=== PATIENT | male | born 1965 | race Caucasian/White ===

== ENCOUNTER → 2018-12-16 | Outpatient (CLI) | payer OTHER ==
[~2018-12-16] MED LIST: CRESTOR PO; FISH OIL 1,2001 EAC4 PO; GEMFIBROZIL PO; LORTAB 5 MG/5001 TA1 OR; NABUMETONE PO; RANITIDINE PO; SERTRALINE PO
--- NOTE | 2018-12-25 19:54 | SLE ---
[facility] [place] [address] POLYSOMNOGRAPHY STUDY Name: [facility]#: [id number] Admission: 12/16/18 Attend Phys: Chapincito Stafford MD Discharge: Date of : 67 Report #: [id number] THIS REPORT FOR: //name// CC: Chapincito Vargas MD DATE OF SERVICE: 12/16/2018 SLEEP STUDY ATTENDING PHYSICIAN: Dr. Mayito Vargas. The patient is 53 years old who weighs 236 pounds with a BMI of 34.8. The patient's [place] score was 9. The patient had a home sleep study and was found to have severe MELONIE at an AHI of 55 per hour. The patient also had severe nocturnal hypoxia. The patient returned to [facility] for titration. During the night study, the patient spent 441 minutes in bed and slept for 273 minutes with a low sleep efficiency of 62%. Sleep latency was 32 minutes with a REM latency of 91.5 minutes. Overall, sleep architecture showed normal stage 1 sleep, increased stage 2 sleep, normal slow wave and reduced REM sleep. EKG monitoring revealed an average heart rate of 59 beats per minute. No sustained arrhythmias observed. PLMs were seen at an index of 16 per hour with only 1.5 per hour caused EEG arousals. The patient was started on CPAP at a pressure of 5 cm water and titrated up to 9 cm of water. However, only 3.8 minutes of sleep was observed at 9 cm of water. Best results were seen at a CPAP pressure of 7 cm of water. At that pressure, the patient slept for 64.9 minutes including 9.9 minutes of REM sleep. The patient had supine sleep throughout. The patient's AHI was reduced to 3.7 per hour and oxygen saturation remained above 90%. IMPRESSION: 1. Severe sleep apnea diagnosed by home sleep study. 2. Mild PLMs without any significant EEG arousals. This does not need to be treated. 3. Reduced sleep efficiency resulting from sleep maintenance insomnia. RECOMMENDATIONS: 1. CPAP at 7 cm of water completely eliminated the patient's sleep apnea and should be used on a nightly basis. 2. Follow up in 4-6 weeks to assess compliance with CPAP and to document [address] [address] POLYSOMNOGRAPHY STUDY Name: [facility] Room #: REG [facility] Eileen#: [id number] Admission: 12/16/18 Attend Phys: Chapincito Stafford MD Discharge: Date of : 67 Report #: [id number] clinical improvement. 3. Weight loss is strongly advised. 4. Avoid [employer] depressants. 5. Cautioned regarding driving until symptoms of sleep apnea have resolved with the use of CPAP. 6. PLMs do not need to be treated unless the patient has symptoms of restless legs during the day. <ELECTRONICALLY SIGNED> By: Chapincito Stafford MD 12/25/18 [id number] Chapincito Stafford MD /kenny
== END ==
LOC: SLEEPLAB 14:27
DX: G47.33 Obstructive sleep apnea (adult) (pediatric) (principal)

== ENCOUNTER 2019-04-20 08:30 | Day surgery (SDC) | payer OTHER ==
[~2019-04-20] VITALS: Ht 175.3 cm; Wt 96.2 kg
[~2019-04-20 08:30] MED LIST changes: +BUPROPION HCL150 M1 PO; +CO Q-10200 MG PO; +CRESTOR40 MG PO; +FLONASE 0.05%50 MCG NARES; +MELOXICAM15 MG PO; +RANITIDINE 150150 M1 PO
[2019-04-20 10:23] VITALS: BP 159/90
[2019-04-20 12:00] VITALS: BP 159/90
--- NOTE | 2019-04-26 10:11 | H ---
[facility] [place] [address] HISTORY AND PHYSICAL Name: SAMANTHA PERKINSNT Room #: DEP [facility] M.R.#: [id number] Admission: 04/20/19 Attend Phys: Darrian Norris MD Discharge: 04/20/19 Date of : 67 Report #: [id number] THIS REPORT FOR: //name// CC: Darrian Lamb DATE OF SERVICE: 04/20/2019 PREOPERATIVE DIAGNOSIS: Rhinosinusitis, allergic rhinitis. HISTORY OF PRESENT ILLNESS: The patient is a 53-year-old male who presented back in 12/2017 with a longstanding history of chronic postnasal drainage, thick mucus in the throat, throat clearing, coughing, which is not seasonal. He has a history of sleep apnea as well. On initial evaluation, it was thought that he had mainly chronic allergic rhinitis and sinusitis. He was placed on 3 weeks of oral antibiotics and therapy for his rhinitis. Followup visit was obtained in January, at which time he continued to have physical and symptomatic findings to suggest continued sinusitis. A CT scan was therefore obtained, which demonstrated bilateral maxillary sinus disease. At that point, I gave him the option to continue with more antibiotic therapy and nasal steroid sprays along with full allergy evaluation for bilateral maxillary antrostomies with turbinate reduction, removal of the marielle bullosa. He preceded with allergy testing and reviewed the results. At this point, he does wish to proceed forward with surgical intervention. PLAN: Will be as per the above-mentioned surgery. ALLERGIES TO MEDICATION: PENICILLIN. MEDICATIONS ON ADMISSION: Bupropion, Flonase, meloxicam, Singulair, ranitidine, rosuvastatin, sertraline. PAST SURGICAL HISTORY: Previous adenotonsillectomy, PE tubes, abdominal surgery. MEDICAL HISTORY: For hypercholesterolemia, sleep apnea, anxiety, depression. FAMILY HISTORY: Noncontributory. REVIEW OF SYSTEMS: Negative for any known GI, or cardiovascular issues. PHYSICAL EXAMINATION: VITAL SIGNS: Height of 5 feet 9, weight of 230 pounds. HEENT: As outlined above without any structural abnormalities in the septum, large turbinates were noted. Oral cavity and pharynx, otherwise unremarkable. NECK: Normal. [facility] [address] [place] [address] HISTORY AND PHYSICAL Name: [facility] Room #: DEP [facility]#: [id number] Admission: 04/20/19 Attend Phys: Darrian Norris MD Discharge: 04/20/19 Date of : 67 Report #: [id number] CHEST: Clear. CARDIOVASCULAR: Regular rhythm. ASSESSMENT: History of chronic rhinosinusitis with chronic allergic rhinitis. PLAN: The above-mentioned surgery. <ELECTRONICALLY SIGNED> By: Darrian Norris MD 04/26/19 1011 [id number] 2220 Darrian Norris MD /nt
--- NOTE | 2019-04-26 10:11 | O ---
[facility] [place] [address] OPERATIVE REPORT Name: SAMANTHA PERKINSNT Room #: DEP [facility] M..#: [id number] Admission: 04/20/19 Attend Phys: Darrian Norris MD Discharge: 04/20/19 Date of : 67 Report #: [id number] THIS REPORT FOR: //name// CC: Darrian Lamb DATE OF SERVICE: 04/20/2019 PREOPERATIVE DIAGNOSES: Maxillary sinusitis marielle bullosa, turbinate hypertrophy. POSTOPERATIVE DIAGNOSES: Maxillary sinusitis marielle bullosa, turbinate hypertrophy. PROCEDURE: Endoscopic removal left marielle bullosa, endoscopic bilateral nasal antral windows, endoscopic submucous resection of inferior turbinates. SURGEON: Darrian Norris MD ANESTHESIA: General LMA. INDICATIONS: See H and P. TECHNIQUE: After obtaining consent, he was brought to the operating suite, appropriate time-out was performed. General LMA anesthesia was obtained, the bed was turned 90 degrees, placed in a slight head up position. Cottonoids soaked with Afrin were placed in each side of the nares for vasoconstriction of the turbinates. Initially 4 mL of local anesthetic equally divided between each naris was injected into the anterior face of each middle turbinate and lateral nasal wall. Using a 0-degree endoscope, the left nasal passage was intubated. The middle turbinate was medialized slightly with a Indian. Using a sickle knife, the marielle bullosa was bivalved. Using a combination of a 40 degree RAD turbinate blade and 0 degree Thru-Cuts, the lateral half of the marielle bullosa was removed under direct visualization. I then used a double ball to bring the uncinate process forward and amputated the inferior portion with a side biter. I then used the RAD 40 blade to remove the remainder of the uncinate process in an inferior to superior direction and then enlarged the maxillary ostia with a RAD 40 blade as well. Attention was turned to the right side where again using a 0-degree endoscope, the middle turbinate was visualized. Because of the narrowness of the middle turbinate on this side, it was not feasible to remove it, so I used Ramu-Blakesley forceps to crush the marielle bullosa on the patient's left side. I then used the double ball to bring the uncinate process forward and similar to [facility] [address] [address] OPERATIVE REPORT Name: [facility] Room #: DEP [facility] M.Lalita.#: [id number] Admission: 04/20/19 Attend Phys: Darrian Norris MD Discharge: 04/20/19 Date of : 67 Report #: [id number] the other side, used a side biter to amputate the inferior portion and then the RAD 40 blade was used to remove the remainder of the uncinate process and make the natural maxillary ostia opening. I then injected an additional 3 mL of 1% Xylocaine submucosally in each inferior turbinate on the medial aspect for total use of 10 mL of local anesthetic. Using a sickle knife, an anterior stab incision was made into the anterior face of the inferior turbinate. A submucous tunnel was created on the medial inferior surface. I then used a microdebrider 2.0 turbinate blade to reduce the submucosal component on each side. A [place] elevator was used to outfracture each inferior turbinate. A single piece of Xerogel was cut in half and placed between the middle turbinate and lateral nasal wall on each side and used a single piece of Merogel, divided this in half, bivalved and placed between the septum and the inferior turbinate to prevent any formation of synechia. Nasopharynx was suctioned free of secretions. A mustache dressing applied. He was turned over to anesthesia where he was lightened, extubated and taken to recovery room in stable condition. ESTIMATED BLOOD LOSS: 20 mL. <ELECTRONICALLY SIGNED> By: Darrian Norris MD 04/26/19 1011 [id number] 1315 Darrian Norris MD /nt
== END 2019-04-20 12:45 | disposition home or self-care (01) ==
LOC: OR 08:30 → TBA 08:31 → OR 11:16
DX: J32.0 Chronic maxillary sinusitis (principal); J34.89 Other specified disorders of nose and nasal sinuses; J34.3 Hypertrophy of nasal turbinates; E78.00 Pure hypercholesterolemia, unspecified; E78.5 Hyperlipidemia, unspecified; K21.9 Gastro-esophageal reflux disease without esophagitis; G47.30 Sleep apnea, unspecified; F32.9 Major depressive disorder, single episode, unspecified; F41.9 Anxiety disorder, unspecified; Z98.890 Other specified postprocedural states; Z79.899 Other long term (current) drug therapy; Z88.0 Allergy status to penicillin; Z87.891 Personal history of nicotine dependence; Z90.49 Acquired absence of other specified parts of digestive tract
CPT/HCPCS: 50010; 50101; 50386; 50398; 51634; 53618; 53635; 56635; 62110; 62900; 64037; 70005